=== PATIENT | female | born 1965 | race Two or more races ===

== ENCOUNTER 2018-06-04 22:48 | Emergency (ER) | payer SELFPAY ==
[~2018-06-04] VITALS: Ht 180.3 cm; Wt 91.0 kg
[2018-06-05 02:03] VITALS: BP 131/77
== END 2018-06-05 02:05 | disposition home or self-care (01) ==
LOC: ER 22:48
DX: R42 Dizziness and giddiness (principal); F32.9 Major depressive disorder, single episode, unspecified; F17.200 Nicotine dependence, unspecified, uncomplicated; F12.10 Cannabis abuse, uncomplicated
CPT/HCPCS: 93005; 99283